=== PATIENT | male | born 1965 | race Caucasian/White ===

== ENCOUNTER 2018-12-08 20:41 | Emergency (ER) | payer SELFPAY ==
[~2018-12-08] VITALS: Ht 152.4 cm; Wt 59.0 kg
[2018-12-08 20:49] VITALS: BP 130/81
== END 2018-12-08 22:01 | disposition left against medical advice (07) ==
LOC: ER 20:41
DX: Z53.21 Procedure and treatment not carried out due to patient leaving prior to being seen by health care provider (principal)

== ENCOUNTER 2019-01-28 21:42 | Emergency (ER) | payer SELFPAY ==
[~2019-01-28] VITALS: Ht 162.6 cm; Wt 60.0 kg
[2019-01-29] MEDS ORDERED: IBUPROFEN 800MG TABLET PO SCH (01:00)
[2019-01-29 01:27] VITALS: BP 137/98
== END 2019-01-29 01:29 | disposition home or self-care (01) ==
LOC: ER 21:42
DX: L03.113 Cellulitis of right upper limb (principal)
CPT/HCPCS: 99283